=== PATIENT | female | born 1960 | race Two or more races ===

== ENCOUNTER 2018-10-31 09:48 | Emergency (ER) | payer SELFPAY ==
[~2018-10-31] VITALS: Ht 154.9 cm; Wt 68.0 kg
[2018-10-31 09:57] VITALS: BP 144/78
== END 2018-10-31 11:46 | disposition home or self-care (01) ==
LOC: ER 09:48
DX: L02.11 Cutaneous abscess of neck (principal); L02.212 Cutaneous abscess of back [any part, except buttock and flank]